=== PATIENT | male | born 1980 | race Caucasian/White ===

== ENCOUNTER 2017-07-21 01:29 | Emergency (ER) | payer BC ==
[~2017-07-21] VITALS: Ht 193 cm; Wt 100.0 kg
[2017-07-21 01:37] VITALS: BP 129/97
[2017-07-21] MEDS ORDERED: CYCLOBENZAPRINE10 M1 PO (02:07)
== END 2017-07-21 02:15 | disposition home or self-care (01) ==
LOC: ED 01:29
DX: M62.830 Muscle spasm of back (principal); X50.0XXA Overexertion from strenuous movement or load, initial encounter
CPT/HCPCS: J1885; J2360

== ENCOUNTER 2017-11-25 15:00 | Outpatient (RCR) | payer BC ==
[~2017-11-25 15:00] MED LIST: CYCLOBENZAPRINE10 M1 PO
== END 2017-12-02 | disposition home or self-care (01) ==
LOC: PT
DX: M25.512 Pain in left shoulder (principal); R20.2 Paresthesia of skin; R20.0 Anesthesia of skin

== ENCOUNTER 2017-12-11 14:01 | Outpatient (RCR) | payer BC | END 2018-03-11 | disposition home or self-care (01) | LOC: PT | DX: S46.912D Strain of unspecified muscle, fascia and tendon at shoulder and upper arm level, left arm, subsequent encounter (principal); X50.0XXD Overexertion from strenuous movement or load, subsequent encounter; Y92.39 Other specified sports and athletic area as the place of occurrence of the external cause ==

== ENCOUNTER 2020-01-05 09:38 | Emergency (ER) | payer BC ==
[~2020-01-05] VITALS: Ht 193 cm; Wt 106.8 kg
[2020-01-05 10:23] LABS: EOS # 0.1 (0.04-0.40); EOS % 1.2 % (0.0-4.0); HEMATOCRIT 45.4 % (42.0-52.0); HEMOGLOBIN 15.8 g/dL (13.5-18.0); LYMPH# 1.3 (1.50-4.00); MEAN CELL VOLUME 88 fl (78-100); MEAN CORPUSCULAR HEMOGLOBIN 31 pg (27-31); MEAN CORPUSCULAR HGB CONC 35 g/dL (33-37); MEAN PLATELET VOLUME 9.3 fl (7.4-10.4); MONO # 0.4 (0.20-0.80); PLATELET COUNT 221 K/mm3 (130-400); RED BLOOD COUNT 5.18 M/mm3 (4.20-5.60); RED CELL DISTRIBUTION WIDTH 13.1 % (11.5-14.5); WHITE BLOOD COUNT 4.8 K/mm3 (4.8-10.8)
[2020-01-05 10:34] LABS: ALBUMIN 4.4 g/dL (3.5-5.0); POTASSIUM 3.8 mmol/L (3.5-5.1); SODIUM 139 mmol/L (136-145)
[2020-01-05 10:35] LABS: CALCIUM 9.2 mg/dL (8.3-10.5)
[2020-01-05 10:36] LABS: GLUCOSE 109 mg/dL (75-110)
[2020-01-05 10:37] LABS: TOTAL PROTEIN 7.3 g/dL (6.4-8.3)
[2020-01-05 10:38] LABS: CARBON DIOXIDE 23 mmol/L (22-29); TOTAL BILIRUBIN 0.6 mg/dL (0.2-1.2)
[2020-01-05 10:42] LABS: AST-SGOT 21 U/L (5-34)
[2020-01-05 10:43] LABS: ALT/SGPT 22 U/L (0-55)
[2020-01-05 10:51] LABS: TROPONIN-I < 0.03 ng/mL (<0.030)
[2020-01-05] MEDS ORDERED: HCTZ 25MG25 MG PO (12:51)
[2020-01-05 13:23] VITALS: BP 139/97
== END 2020-01-05 13:20 | disposition home or self-care (01) ==
LOC: ED 09:38
PROVIDERS: Nurse Practitioner Primary Care
DX: R00.2 Palpitations (principal); I10 Essential (primary) hypertension